=== PATIENT | female | born 2005 | race Caucasian/White ===

== ENCOUNTER 2025-05-27 11:21 | Emergency (ER) | payer BC, SELFPAY ==
[2025-05-27 11:29] VITALS: BP 111/81; PULSE 101; RESP 18; TEMP 36.9; O2SAT 98; BMI 22.5
--- NOTE | 2025-05-27 11:31 | ED_ITS ---
HPI - General Adult General Chief complaint: Upper Respiratory Symptoms Stated complaint: tonsils swollen Time Seen by Provider: 05/27/25 11:31 Source: patient Mode of arrival: ambulatory Limitations: no limitations History of Present Illness ED Provider: ELOISA LONGO PA-C HPI narrative: 20 year old female with pmhx significant for strep throat presents to the ED today for evaluation of sore throat x24 hours. Denies known sick contacts. Denies fever/chills, N/V, dysphagia, cough. Related Data Previous Rx's ?Medication ?Instructions ?Recorded benzocaine 15 mg-menthol 2.6 mg 1 royal mucous membrane Q2-4H PRN 05/27/25 lozenges (Cepacol Sore Throat sore throat #16 ea (benzocaine-menthol)) cephalexin 500 mg capsule 500 mg PO BID 10 days #20 ca ps 05/27/25 Allergies Allergy/AdvReac Type Severity Reaction Status Date / Time amoxicillin Allergy Hives Verified 05/27/25 11:31 Review of Systems Review of Systems: Constitutional: No fever, chills, fatigue, night sweats, weight changes ENT/Mouth: No ear pain, hearing loss, nasal congestion, sinus pain, rhinorrhea, +sore throat, +odynophagia, No dysphagia Eyes: No eye pain, swelling, redness, vision changes, discharge Cardio: No chest pain, palpitations, [place], orthopnea, peripheral edema Pulm: No SOB, cough, sputum, wheezing, dyspnea, hemoptysis GI: No nausea, vomiting, hematemesis, abdominal pain, diarrhea, constipation, hematochezia, melena : No irregular bleeding, dysuria, frequency, urgency, hesitancy, hematuria, flank pain MSK: No back pain, neck pain, joint pain, myalgias Skin: No lesions, rashes Neuro: No weakness, numbness, paresthesias, LOC, dizziness, headache All other systems reviewed and are negative. [facility] Past Medical History Attestation statement: The following information was validated with the patient. Source: old records reviewed and nursing notes reviewed Social History Social History Advance Directives: No Advance Directives Information Provided: No Physical Exam ED Vital Signs: Vital Signs - 24 hr 05/27/25 11:29 Temperature 98.4 F Pulse Rate 101 H Respiratory Rate 18 Blood Pressure 111/81 Pulse Oximetry 98 Oxygen Delivery Method Room Air BMI result Body Mass Index 22.5 Vital signs stable, afebrile Const General: cooperative, healthy appearing, comfortable, no acute distress, alert and awake Orientation/consciousness: patient oriented x3 Limitations: no limitations HENMT Other: + posterior oropharynx erythematous, mild tonsillar swelling b/l, uvula is midline, exudates noted to R tonsil, no peritonsillar masses, controlling secretions and speaking in complete sentences. no muffled voice or anterior neck swelling. Head: Yes normal to inspection, Yes normocephalic and Yes atraumatic Ears: hearing grossly normal bilaterally, external ears normal, TM's normal bilaterally, EAC's normal, mastoids normal and no periauricular adenopathy General nose exam: Normal external nose present and No nasal discharge present Face and sinus: Yes normal facial exam and Yes sinuses nontender Eyes General: appearance normal, both eyes and all related structures Pupils: Equal, round and reactive pupils present Neck Other: + no cervical, submandibular or submental LAD. Neck: Yes normal visual inspection and Yes full ROM Resp Effort & Inspection: normal respiratory effort and able to speak in complete sentences Auscultation: clear to auscultation bilaterally Cardio Rate: regular rate Rhythm: regular rhythm GI Inspection: Yes normal to inspection Palpation (GI): Soft to palpation and nontender Skin General skin exam: no rashes or lesions noted Neuro General: patient oriented x3, gait normal and moves all extremities Cranial nerves: Yes Equal, round and reactive pupils present Extrem General: Yes normal to inspection Course Course Course Narrative: Centor criteria 3. Strep, flu, rsv, and covid negative. Exam findings concerning for strep. treated w/ decadron in ED. will send keflex to pharmacy for coverage (pcn allergy as a child). Patient has remained stable throughout ED visit today. Discussed worrisome signs and symptoms and when to return to the ED. All questions answered at this time. Patient is agreeable with disposition and stable for discharge. Medical Decision Making Medical Decision Making [facility] Narrative: 20 year old female with pmhx significant for strep throat presents to the ED today for evaluation of sore throat x24 hours. vital signs stable, afebrile. she is well appearing and in NAD, on exam posterior oropharynx erythematous, mild tonsillar swelling b/l, uvula is midline, exudates noted to R tonsil, no peritonsillar masses, controlling secretions and speaking in complete sentences. no muffled voice or anterior neck swelling. Clinical concern for strep throat, viral syndrome. Unlikely COT[place] STOMPER, retropharyngeal abscess, dental abscess, epiglottis, acute respiratory distress, pneumonia. Plan for viral/strep swabs. PO decadron ordered. Differential Diagnosis Differential Diagnoses: The differential diagnosis associated with the presentation includes as above. Admission/Observation Not indicated Lab Data MDM Lab Attestation statement: I reviewed the patient's lab results. as above Labs: Lab Results 05/27/25 Range/Units 11:36 Influenza Type A (PCR) NEGATIVE (Negative) Influenza Type B (PCR) NEGATIVE (Negative) RSV RNA Qual (PCR) NEGATIVE (Negative) SARS-CoV-2 RNA (RT-PCR) NEGATIVE (Negative) S. pyogenes GrpA GABE Negative (Negative) External Record Review External record reviewed: Inpatient record Prescription Management I considered prescription management with: Pain Medication and Antibiotic (keflex) Social Determinants Patient?s care significantly limited by Social Determinants of Health including: Other Social Determinant of Health Critical Care Time Critical Care Time Critical Care Time: No Discharge Plan Discharge Clinical Impression: Pharyngitis Patient Disposition: Home, Self-Care Instructions: Pharyngitis (ED) Additional Instructions: You were seen in the ED today for evaluation of sore throat. You tested negative for covid, flu, rsv, and strep throat. Your exam findings are concerning for strep throat and I will be treating you with antibiotics. Kefelx is an antibiotic that has been sent to your pharmacy. Take this twice daily for the next 10 days to treat strep throat. Do not stop taking these antibiotics early or miss any doses as this may cause infection to return or worsen. Cepacol throat lozenges have been sent to your pharmacy to help with throat pain. Take Tylenol and ibuprofen as needed for body aches or fevers. Make sure to change your toothbrush as this contains bacteria. If anyone else in your household is exhibiting symptoms, please advise them to come to the ED, urgent care, or to see their primary care provider. Follow up with your primary care provider this week. Return to the Emergency Department if you experience worsening or uncontrolled pain, tongue swelling, difficulty swallowing, change in your voice, difficulty breathing, fevers 100.4?F or greater, recurrent vomiting, development of a rash, or any other concerning symptoms. In the case of emergency, call 911.? Prescriptions: New cephalexin 500 mg capsule 500 mg PO BID 10 Days Qty: 20 0RF Cepacol Sore Throat (richard-men) 15-2.6 mg lozenge 1 royal mucous membrane Q2-4H PRN (Reason: sore throat) Qty: 16 0RF Referrals: Physician,None [Primary Care Provider, Medical] Stand Alone Forms: Work/School Release Print Language: Latvian
[2025-05-27 11:56] LABS: IDNOW Serial# 58CA691E; Strep A Nucleic Acid Negative (Negative)
[2025-05-27 12:28] LABS: Resp Syncy Virus RNA Qual PCR NEGATIVE (Negative); SARS COV2 PCR INHOUSE NEGATIVE (Negative)
--- NOTE | 2025-05-27 12:50 | PC.NURSE ---
pt medicated per order
[2025-05-27 13:06] VITALS: BP 112/72; PULSE 99; RESP 18; TEMP 36.8; O2SAT 97
== END 2025-05-27 13:07 | disposition home or self-care (01) ==
PROVIDERS: Physician Assistant Medical; Emergency Provider Emergency Medicine
DX: J02.9 Acute pharyngitis, unspecified (principal); Z03.818 Encounter for observation for suspected exposure to other biological agents ruled out
CPT/HCPCS: 87637; 87651; 99283; J1100

== ENCOUNTER 2025-10-20 23:50 | Emergency (ER) | payer OTHER, SELFPAY ==
--- NOTE | ~2025-10-20 | XR_ITS ---
CLINICAL HISTORY: injury Left 5th finger three views Comparison: None provided Findings: Nondisplaced fracture base of distal phalanx. Mucous extends into the dorsomedial aspect. No radiopaque foreign body. Impression: Fifth distal phalanx fracture as above This document has been electronically signed by: Eduard Whitt MD on 10/21/2025 00:25:08
[2025-10-20 23:51] VITALS: BP 106/82; PULSE 87; RESP 18; TEMP 36.8; O2SAT 95; BMI 23.2
--- OUTSIDE RECORDS SUMMARY | 2025-10-21 00:22 | XMS_ITS | Clinical Summary ---
Author Organization [facility] ity Address [address] [place] [address] Care Team Providers Care [place] [employer] Member Name Role Phone Unavailable Primary Care Provider Unavailabl e Social History Tobacco Use Types Packs/Day Years Used Date Smoking Tobacco: Never Assessed Comments Unknown Sex and Gender Information Value Date Recorded Sex Assigned at Not on file Legal Sex Female 8:27 AM EST Gender Identity Not on file Sexual Orientation Not on file Plan of Treatment Health Maintenance Due Date Last Done Comments Gonorrhea/Chlamydia Screening 2003 HPV Vaccines (1 - 3-dose series) 2018 Meningococcal B Vaccine (1 o f 2 - Standard) 2019 DTaP,Tdap,and Td Vaccines (1 - Tdap) 2022 Hepatitis B Vaccines (1 of 3 - 19+ 3-dose series) 2022 HIV Screening 10/05/2022 Hepatitis C Screening 10/05/2022 Social Influencers of Health Screening 10/05/2022 Cervical Cancer Screening: P ap Smear 2024 Depression Screening 11/02/2024 COVID-19 Vaccine (1 - 2024-2 6 season) 2025 Influenza Vaccine (#1) 2025 RSV Immunization Adult Patie nts (1 - 1-dose 75+ series) 2078 HIB Vaccines Aged Out No longer eligi ble based on patient's age to complete this topic Hepatitis A Vaccines Aged Out No long er eligible based on patient's age to complete this topic IPV Vaccines Aged Out No longer eligi ble based on patient's age to complete this topic MMR Vaccines Aged Out No longer eligi ble based on patient's age to complete this topic Meningococcal ACWY Vaccine Aged Out N o longer eligible based on patient's age to complete this topic Pneumococcal Vaccine: Pediat rics (0 to 5 Years) and At-Risk Patients (6 to 49 Years) Aged Out No longer eligible b ased on patient's age to complete this topic RSV Immunization Patients Un delia 20 months Aged Out No longer eligible b ased on patient's age to complete this topic Varicella Vaccines Aged Out No longer eligible based on patient's age to complete this topic
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
[2025-10-21 01:51] VITALS: BP 106/82; PULSE 87; RESP 18; TEMP 36.8; O2SAT 95
[2025-10-21 01:54] VITALS: BP 106/82; PULSE 87; RESP 18; TEMP 36.8; O2SAT 95
== END 2025-10-21 01:55 | disposition home or self-care (01) ==
PROVIDERS: Emergency Provider Emergency Medicine Emergency Medical Services
DX: S62.667A Nondisplaced fracture of distal phalanx of left little finger, initial encounter for closed fracture (principal); W23.0XXA Caught, crushed, jammed, or pinched between moving objects, initial encounter; Y93.89 Activity, other specified; Y92.89 Other specified places as the place of occurrence of the external cause
CPT/HCPCS: 73140; 99283

== ENCOUNTER → 2025-10-21 00:12 | Outpatient (BNV) | payer OTHER, SELFPAY | PROVIDERS: Visit Provider Radiology Diagnostic Radiology | DX: S62.637A Displaced fracture of distal phalanx of left little finger, initial encounter for closed fracture (principal) | CPT/HCPCS: 73140 ==